=== PATIENT | male | born 1950 | race Asian ===

== ENCOUNTER 2017-12-01 09:04 | Day surgery (SDC) | payer OTHER ==
[~2017-12-01] VITALS: Ht 180.3 cm; Wt 135.0 kg
[2017-12-01] MEDS ORDERED: SODIUM CHLORIDE 0.9% 1,000 ML IV SCH (11:00)
[2017-12-01] MEDS ORDERED: CEFAZOLIN PMX 1GM/50ML 50 ML IVPB ONE (11:00)
[2017-12-01] MEDS ORDERED: CARV-39 PO (11:19)
[2017-12-01] MEDS ORDERED: ATOR40TA78 PO (11:19)
[2017-12-01] MEDS ORDERED: SPIR25TA3 PO (11:19)
[2017-12-01] MEDS ORDERED: APIX5TAB PO (11:19)
[2017-12-01] MEDS ORDERED: POTA10TA57 PO (11:19)
[2017-12-01] MEDS ORDERED: LISI40TA PO (11:19)
[2017-12-01] MEDS ORDERED: DIGO250T PO (11:19)
[2017-12-01 11:21] LABS: BASOPHILS # (AUTO) 0.03 x10^3/uL (0-0.1); BASOPHILS % (AUTO) 1 % (0-1); EOSINOPHILS # (AUTO) 0.26 x10^3/uL (0-0.4); EOSINOPHILS % (AUTO) 4 % (1-7); LYMPHOCYTES # (AUTO) 1.98 x10^3/uL (1-3.4); LYMPHOCYTES % (AUTO) 28 % (22-44); MD NO; MEAN CORPUSCULAR HEMOGLOBIN 32.2 pg (27.5-34.5); MEAN CORPUSCULAR HGB CONC 34.6 g/dL (33.2-36.2); MEAN CORPUSCULAR VOLUME 93.1 fL (81-97); MEAN PLATELET VOLUME 7.9 fL (7.4-10.4); MONOCYTES # (AUTO) 0.46 x10^3/uL (0.2-0.8); MONOCYTES % (AUTO) 7 % (2-9); NEUTROPHILS # (AUTO) 4.34 x10^3/uL (1.8-6.8); NEUTROPHILS % (AUTO) 61 % (42-75); PLATELET COUNT 185 x10^3/uL (130-400); RED BLOOD COUNT 4.75 x10^6/uL (4.38-5.82); RED CELL DISTRIBUTION WIDTH 12.8 % (9.4-14.8)
[2017-12-01] MEDS ORDERED: CEFAZOLIN 1,000 MG ONE (11:24)
[2017-12-01] MEDS ORDERED: MIDAZOLAM 1 MG/ML, 5ML ONE (11:24)
[2017-12-01] MEDS ORDERED: LIDOCAINE/PF 1%, 30ML ONE (11:24)
[2017-12-01] MEDS ORDERED: FENTANYL PF 100 MCG/2ML ONE (11:24)
[2017-12-01] MEDS ORDERED: CEFAZOLIN PMX 1GM/50ML 50 ML ONE (11:24)
[2017-12-01 11:31] LABS: ANION GAP 6 mmol/L (5-15); CALCIUM 8.5 mg/dL (8.5-10.1); CHLORIDE 108 mmol/L (98-107); CREATININE 1.27 mg/dL (0.7-1.3)
[2017-12-01] MEDS ORDERED: HYDROcodone/APAP 5/325 TABLET PO PRN (12:30)
[2017-12-01] MEDS ORDERED: SODIUM CHLORIDE FLUSH 10ML SYR IVF SCH (21:00)
== END 2017-12-01 14:40 | disposition home or self-care (01) ==
LOC: CACL 09:04
PROVIDERS: ATTEND Internal Medicine Cardiovascular Disease
DX: Z45.02 Encounter for adjustment and management of automatic implantable cardiac defibrillator (principal); I48.91 Unspecified atrial fibrillation; I10 Essential (primary) hypertension; E78.00 Pure hypercholesterolemia, unspecified; E66.9 Obesity, unspecified; I27.29 Other secondary pulmonary hypertension; Z79.01 Long term (current) use of anticoagulants; M10.9 Gout, unspecified; I42.9 Cardiomyopathy, unspecified
CPT/HCPCS: 33262; 36415; 80048; 85025; 99156; 99157; C1722; J0690; J2250; J3010; J3490

== ENCOUNTER → 2018-03-08 | Outpatient (CLI) | payer OTHER ==
[~2018-03-08] MED LIST: APIX5TAB PO; ATOR40TA78 PO; CARV-39 PO; DIGO250T PO; LISI40TA PO; POTA10TA57 PO; SPIR25TA5 PO
[2018-03-08 12:29] LABS: BASOPHILS # (AUTO) 0.03 x10^3/uL (0-0.1); BASOPHILS % (AUTO) 0 % (0-1); EOSINOPHILS # (AUTO) 0.23 x10^3/uL (0-0.4); EOSINOPHILS % (AUTO) 3 % (1-7); LYMPHOCYTES # (AUTO) 1.92 x10^3/uL (1-3.4); LYMPHOCYTES % (AUTO) 27 % (22-44); MD NO; MEAN CORPUSCULAR HEMOGLOBIN 31.2 pg (27.5-34.5); MEAN CORPUSCULAR HGB CONC 33.6 g/dL (33.2-36.2); MEAN CORPUSCULAR VOLUME 92.9 fL (81-97); MEAN PLATELET VOLUME 8.7 fL (7.4-10.4); MONOCYTES # (AUTO) 0.53 x10^3/uL (0.2-0.8); MONOCYTES % (AUTO) 8 % (2-9); NEUTROPHILS # (AUTO) 4.32 x10^3/uL (1.8-6.8); NEUTROPHILS % (AUTO) 61 % (42-75); PLATELET COUNT 186 x10^3/uL (130-400); RED BLOOD COUNT 4.77 x10^6/uL (4.38-5.82); RED CELL DISTRIBUTION WIDTH 13.4 % (9.4-14.8)
[2018-03-08 12:59] LABS: CALCIUM 8.8 mg/dL (8.5-10.1)
[2018-03-08 13:04] LABS: ALANINE AMINOTRANSFERASE 46 U/L (12-78); ALBUMIN 3.8 g/dL (3.4-5.0); ANION GAP 4 mmol/L (5-15); CHLORIDE 106 mmol/L (98-107)
[2018-03-08 13:08] LABS: CHOLESTEROL, TOTAL 116 mg/dL (140-239); CREATININE 1.46 mg/dL (0.7-1.3)
[2018-03-08 13:18] LABS: ALKALINE PHOSPHATASE 51 U/L (45-117); BILIRUBIN,TOTAL 1.3 mg/dL (0.2-1.0); CHOL/HDL RATIO 4.8; HDL CHOL % 21 % (26-37); HDL CHOLESTEROL (DIRECT) 24 mg/dL (40-60); LDL CHOLESTEROL,CALCULATED 69 mg/dL (54-169); LDL/HDL RATIO 2.9 (0.5-3.0); T4 (THYROXINE) 9.7 mcg/dL (4.5-12.1); TOTAL PROTEIN 8.1 g/dL (6.4-8.2); TRIGLYCERIDES 116 mg/dL (50-200); VLDL CHOLESTEROL 23 mg/dL (0-25)
== END | disposition home or self-care (01) ==
LOC: CFH 08:35
PROVIDERS: ATTEND Internal Medicine Cardiovascular Disease
DX: I10 Essential (primary) hypertension (principal); I48.2 Chronic atrial fibrillation; R73.01 Impaired fasting glucose; Z79.01 Long term (current) use of anticoagulants
CPT/HCPCS: 36415; 80053; 80061; 80162; 84436; 84481; 85025

== ENCOUNTER 2018-08-29 10:16 | Outpatient (CLI) | payer OTHER | END 2018-08-29 23:59 | disposition home or self-care (01) | LOC: CVU 10:16 | PROVIDERS: ATTEND Internal Medicine Cardiovascular Disease | DX: I08.3 Combined rheumatic disorders of mitral, aortic and tricuspid valves (principal); Z95.0 Presence of cardiac pacemaker | CPT/HCPCS: 93306 ==

== ENCOUNTER 2019-07-18 14:03 | Outpatient (CLI) | payer OTHER ==
[~2019-07-18 14:03] MED LIST changes: -DIGO250T PO; +DIGO250T3 PO
== END 2019-07-18 23:59 | disposition home or self-care (01) ==
LOC: CVU 14:03
PROVIDERS: ATTEND Internal Medicine Cardiovascular Disease
DX: I08.8 Other rheumatic multiple valve diseases (principal); I42.9 Cardiomyopathy, unspecified; E78.5 Hyperlipidemia, unspecified; I48.91 Unspecified atrial fibrillation; I27.20 Pulmonary hypertension, unspecified
CPT/HCPCS: 93306

== ENCOUNTER 2019-12-11 15:15 | Outpatient (CLI) | payer OTHER | END 2019-12-11 23:59 | disposition home or self-care (01) | LOC: CVU 15:15 | PROVIDERS: ATTEND Internal Medicine Cardiovascular Disease | DX: I08.3 Combined rheumatic disorders of mitral, aortic and tricuspid valves (principal); I42.9 Cardiomyopathy, unspecified; I10 Essential (primary) hypertension; E78.5 Hyperlipidemia, unspecified; Z95.810 Presence of automatic (implantable) cardiac defibrillator; Z79.01 Long term (current) use of anticoagulants | CPT/HCPCS: 93306 ==

== ENCOUNTER → 2020-11-18 | Outpatient (CLI) | payer BC, OTHER ==
[~2020-11-18] MED LIST changes: -LISI40TA PO; +LISI40TA9 PO
== END | disposition home or self-care (01) ==
LOC: CVU 11:19
PROVIDERS: ATTEND Internal Medicine Cardiovascular Disease
DX: I08.3 Combined rheumatic disorders of mitral, aortic and tricuspid valves (principal); I48.91 Unspecified atrial fibrillation; I10 Essential (primary) hypertension; E78.5 Hyperlipidemia, unspecified; Z95.810 Presence of automatic (implantable) cardiac defibrillator
CPT/HCPCS: 93306; 93356